=== PATIENT | male | born 1965 | race Caucasian/White ===

== ENCOUNTER 2019-05-21 14:18 | Emergency (ER) | payer MEDICARE ==
[~2019-05-21] VITALS: Ht 167.6 cm; Wt 91.1 kg
[2019-05-21 14:22] VITALS: BP 142/82
[2019-05-21] MEDS ORDERED: PROPARACAINE OPHTH 0.5%, 15ML ONE (14:31)
[2019-05-21] MEDS ORDERED: FLUORESCEIN OPHTHALMIC 1 MG STRIP ONE (14:31)
--- NOTE | 2019-05-21 14:31 | NUR ---
PT TO ROOM AT THIS TIME
--- NOTE | 2019-05-21 15:00 | NUR ---
PT WITH STY ON L EYE, ER PROVIDER IN TO EVAL. PT TO D/C WITH ABX
--- NOTE | 2019-05-21 15:13 | NUR ---
Patient/Caregiver given discharge instructions and they have confirmed that they understand the instructions. Patient ambulatory with steady gait.
== END 2019-05-21 15:14 | disposition home or self-care (01) ==
LOC: ED 14:50
DX: H00.011 Hordeolum externum right upper eyelid (principal)
CPT/HCPCS: 99283

== ENCOUNTER 2019-09-29 19:02 | Emergency (ER) | payer MEDICARE ==
[~2019-09-29] VITALS: Ht 170.2 cm; Wt 86.0 kg
[2019-09-29 19:04] VITALS: BP 144/86
[2019-09-29] MEDS ORDERED: DIPH,PERTUSS(ACELL),TET VAC/PF 0.5 ML IM-VACC ONE (20:00)
[2019-09-29] MEDS ORDERED: HYDROcodone/APAP 5/325 TABLET PO ONE (20:00)
[2019-09-29] MEDS ORDERED: HYDROcodone/APAP 5/325 TABLET ONE (20:02)
[2019-09-29 20:08] LABS: BASOPHILS # (AUTO) 0.02 x10^3/uL (0-0.1); BASOPHILS % (AUTO) 0 % (0-1); EOSINOPHILS # (AUTO) 0.04 x10^3/uL (0-0.4); EOSINOPHILS % (AUTO) 0 % (1-7); LYMPHOCYTES % (AUTO) 12 % (22-44); MD NO; MEAN CORPUSCULAR HEMOGLOBIN 31.2 pg (27.5-34.5); MEAN CORPUSCULAR HGB CONC 33.6 g/dL (33.2-36.2); MEAN CORPUSCULAR VOLUME 92.8 fL (81-97); MEAN PLATELET VOLUME 7.9 fL (7.4-10.4); MONOCYTES # (AUTO) 0.96 x10^3/uL (0.2-0.8); MONOCYTES % (AUTO) 7 % (2-9); NEUTROPHILS # (AUTO) 11.23 x10^3/uL (1.8-6.8); NEUTROPHILS % (AUTO) 81 % (42-75); PLATELET COUNT 249 x10^3/uL (130-400); RED BLOOD COUNT 4.55 x10^6/uL (4.38-5.82); RED CELL DISTRIBUTION WIDTH 13.4 % (9.4-14.8)
[2019-09-29] MEDS ORDERED: HYDROcodone/APAP 10/325 MG TABLET ONE (20:26)
[2019-09-29] MEDS ORDERED: HYDROcodone/APAP 10/325 MG TABLET PO ONE (20:30)
== END 2019-09-29 20:48 | disposition home or self-care (01) ==
LOC: ED 20:30
DX: S61.250A Open bite of right index finger without damage to nail, initial encounter (principal); W54.0XXA Bitten by dog, initial encounter; Y93.89 Activity, other specified; Y92.009 Unspecified place in unspecified non-institutional (private) residence as the place of occurrence of the external cause; Y99.8 Other external cause status
CPT/HCPCS: 36415; 85025; 90471; 90715; 99284

== ENCOUNTER 2019-09-30 20:20 | Inpatient (IN) | payer MEDICARE ==
[~2019-09-30] VITALS: Ht 170.2 cm; Wt 83.0 kg
[2019-09-30] MEDS ORDERED: ONDANSETRON 2MG/ML, 2ML ONE (21:43)
[2019-09-30] MEDS ORDERED: MORPHINE SULFATE 4 MG/ML, 1ML ONE ×2 (21:44→23:27)
[2019-10-01] MEDS ORDERED: ACETAMINOPHEN 325 MG TABLET PO PRN (01:00)
[2019-10-01] MEDS ORDERED: ONDANSETRON 2MG/ML, 2ML IV PRN ×2 (01:00→11:00)
[2019-10-01 02:30] VITALS: BP 107/69
[2019-10-01] MEDS: SODIUM CHLORIDE 0.9% 1,000 ML IV SCH ×2 (03:15→13:21)
[2019-10-01] MEDS: morphine SULFATE 10 MG/ML, 1ML IV PRN ×4 (03:17→22:19)
[2019-10-01] MEDS: HEPARIN 5,000 UNITS/ML, 1ML SQ SCH ×3 (03:25→20:00)
[2019-10-01] MEDS: AMPICILLIN/SULBACTAM 3 GM in SODIUM CHLORIDE 0.9% 100 ML IV SCH ×3 (04:15→18:27)
[2019-10-01] MEDS ORDERED: FLUO90CA5 PO (05:44)
[2019-10-01] MEDS ORDERED: HYDR-3245 PO (05:45)
[2019-10-01] MEDS ORDERED: GABA300C10 PO (05:49)
[2019-10-01] MEDS ORDERED: DULO30CA2 PO (05:50)
[2019-10-01] MEDS ORDERED: LORA-445 PO (05:53)
[2019-10-01 06:17] LABS: BASOPHILS # (AUTO) 0.02 x10^3/uL (0-0.1); BASOPHILS % (AUTO) 0 % (0-1); EOSINOPHILS % (AUTO) 1 % (1-7); LYMPHOCYTES % (AUTO) 12 % (22-44); MD NO; MEAN CORPUSCULAR HEMOGLOBIN 31.1 pg (27.5-34.5); MEAN CORPUSCULAR HGB CONC 33.1 g/dL (33.2-36.2); MEAN CORPUSCULAR VOLUME 93.9 fL (81-97); MEAN PLATELET VOLUME 8.3 fL (7.4-10.4); MONOCYTES # (AUTO) 0.76 x10^3/uL (0.2-0.8); MONOCYTES % (AUTO) 6 % (2-9); NEUTROPHILS # (AUTO) 9.69 x10^3/uL (1.8-6.8); NEUTROPHILS % (AUTO) 81 % (42-75); PLATELET COUNT 205 x10^3/uL (130-400); RED BLOOD COUNT 4.01 x10^6/uL (4.38-5.82)
[2019-10-01 06:29] LABS: ALANINE AMINOTRANSFERASE 31 U/L (12-78); ALBUMIN 3.1 g/dL (3.4-5.0); ANION GAP 6 mmol/L (5-15); CALCIUM 7.9 mg/dL (8.5-10.1); CHLORIDE 110 mmol/L (98-107); CREATININE 1.18 mg/dL (0.7-1.3)
[2019-10-01 06:31] LABS: ALKALINE PHOSPHATASE 83 U/L (45-117); BILIRUBIN,TOTAL 0.4 mg/dL (0.2-1.0); TOTAL PROTEIN 6.5 g/dL (6.4-8.2)
[2019-10-01] MEDS ORDERED: TAMS-11 PO (07:04)
[2019-10-01 07:50] LABS: INTERNATIONAL NORMALIZED RATIO 0.98 (0.93-1.1); PROTHROMBIN TIME 10.3 Seconds (9.6-11.5)
[2019-10-01 07:59] VITALS: BP 111/70
[2019-10-01] MEDS ORDERED: BACITRACIN 50,000 UNIT ONE (09:51)
[2019-10-01] MEDS ORDERED: FENTANYL PF 100 MCG/2ML ONE ×2 (10:31→11:43)
[2019-10-01] MEDS ORDERED: MIDAZOLAM 1 MG/ML, 2ML ONE (10:32)
[2019-10-01] MEDS ORDERED: LIDOCAINE-MPF 2% ,5ML ONE (10:32)
[2019-10-01] MEDS ORDERED: PROPOFOL 10 MG/ML, 20ML ONE ×2 (10:32→11:00)
[2019-10-01] MEDS ORDERED: HYDROmorphone 2 MG/ML, 1ML IVPush PRN (11:00)
[2019-10-01] MEDS ORDERED: LABETALOL 5MG/ML, 20ML IV PRN (11:00)
[2019-10-01] MEDS ORDERED: hydrALAzine 20 MG/ML, 1ML IV PRN (11:00)
[2019-10-01] MEDS ORDERED: PROMETHAZINE 25 MG/ML, 1ML IV PRN (11:00)
[2019-10-01] MEDS ORDERED: EPHEDRINE 50 MG/ML, 1ML IVPush PRN (11:00)
[2019-10-01] MEDS ORDERED: HYDROcodone/APAP 7.5-325MG/15ML UDC PO PRN (11:00)
[2019-10-01] MEDS ORDERED: FENTANYL PF 100 MCG/2ML IV PRN (11:00)
[2019-10-01] MEDS ORDERED: MEPERIDINE/PF 25MG/ML,1ML IVPush PRN (11:00)
[2019-10-01] MEDS ORDERED: HYDROcodone/APAP 7.5-325MG/15ML UDC ONE ×3 (11:43→11:46)
[2019-10-01] MEDS ORDERED: HYDROmorphone 1 MG/ML, 1ML VIAL ONE (11:44)
[2019-10-01 13:51] VITALS: BP 105/67
[2019-10-01] MEDS ORDERED: VANCOMYCIN PER PHARMACY MC PRN (14:30)
[2019-10-01 14:45] LABS: LYMPHOCYTES % (AUTO) 10 % (22-44); MEAN CORPUSCULAR HEMOGLOBIN 30.8 pg (27.5-34.5); MEAN CORPUSCULAR HGB CONC 33.1 g/dL (33.2-36.2); MEAN PLATELET VOLUME 8.4 fL (7.4-10.4); NEUTROPHILS % (AUTO) 82 % (42-75); PLATELET COUNT 232 x10^3/uL (130-400); RED BLOOD COUNT 4.53 x10^6/uL (4.38-5.82); RED CELL DISTRIBUTION WIDTH 13.6 % (9.4-14.8)
[2019-10-01 14:46] LABS: BASOPHILS # (AUTO) 0.01 x10^3/uL (0-0.1); BASOPHILS % (AUTO) 0 % (0-1); EOSINOPHILS # (AUTO) 0.14 x10^3/uL (0-0.4); EOSINOPHILS % (AUTO) 1 % (1-7); LYMPHOCYTES # (AUTO) 1.44 x10^3/uL (1-3.4); MD NO; MONOCYTES # (AUTO) 0.85 x10^3/uL (0.2-0.8); MONOCYTES % (AUTO) 6 % (2-9)
[2019-10-01 15:18] LABS: ALBUMIN 4.1 g/dL (3.4-5.0); ANION GAP 5 mmol/L (5-15); CALCIUM 8.4 mg/dL (8.5-10.1); CHLORIDE 105 mmol/L (98-107); CREATININE 1.71 mg/dL (0.7-1.3)
[2019-10-01] MEDS ORDERED: PHARMACOKINETIC MONITORING MC PRN (16:00)
[2019-10-01] MEDS: HYDROcodone/APAP 10/325 MG TABLET PO SCH ×2 (16:16→20:31)
[2019-10-01] MEDS: VANCOMYCIN 1,600 MG in SODIUM CHLORIDE 0.9% 250 ML IV SCH (16:17)
[2019-10-01 19:25] VITALS: BP 104/64
[2019-10-01] MEDS: GABAPENTIN 300 MG CAPSULE PO SCH (20:31)
[2019-10-01] MEDS: DULOXETINE 30 MG CAPSULE.DR PO SCH (20:31)
[2019-10-01] MEDS: LORazepam 0.5MG TABLET PO SCH (20:31)
[2019-10-02 00:03] VITALS: BP 103/65
[2019-10-02] MEDS: AMPICILLIN/SULBACTAM 3 GM in SODIUM CHLORIDE 0.9% 100 ML IV SCH ×3 (01:25→14:20)
[2019-10-02] MEDS: SODIUM CHLORIDE 0.9% 1,000 ML IV SCH ×3 (01:25→23:25)
[2019-10-02] MEDS: HEPARIN 5,000 UNITS/ML, 1ML SQ SCH ×3 (02:29→20:00)
[2019-10-02] MEDS: VANCOMYCIN 1,600 MG in SODIUM CHLORIDE 0.9% 250 ML IV SCH (04:14)
[2019-10-02] MEDS ORDERED: FLU VACC QS2019-20 36MOS UP/PF 0.5 ML IM-VACC ONE (05:00)
[2019-10-02 05:20] LABS: BASOPHILS # (AUTO) 0.01 x10^3/uL (0-0.1); BASOPHILS % (AUTO) 0 % (0-1); EOSINOPHILS % (AUTO) 1 % (1-7); LYMPHOCYTES # (AUTO) 1.47 x10^3/uL (1-3.4); LYMPHOCYTES % (AUTO) 11 % (22-44); MD NO; MEAN CORPUSCULAR HEMOGLOBIN 31.5 pg (27.5-34.5); MEAN CORPUSCULAR HGB CONC 33.2 g/dL (33.2-36.2); MEAN CORPUSCULAR VOLUME 94.7 fL (81-97); MEAN PLATELET VOLUME 8.8 fL (7.4-10.4); MONOCYTES # (AUTO) 0.82 x10^3/uL (0.2-0.8); MONOCYTES % (AUTO) 6 % (2-9); NEUTROPHILS # (AUTO) 11.07 x10^3/uL (1.8-6.8); NEUTROPHILS % (AUTO) 82 % (42-75); PLATELET COUNT 221 x10^3/uL (130-400); RED BLOOD COUNT 3.88 x10^6/uL (4.38-5.82); RED CELL DISTRIBUTION WIDTH 14.2 % (9.4-14.8)
[2019-10-02 05:24] LABS: ANION GAP 3 mmol/L (5-15); CALCIUM 7.8 mg/dL (8.5-10.1); CHLORIDE 110 mmol/L (98-107)
[2019-10-02 05:27] LABS: ALANINE AMINOTRANSFERASE 33 U/L (12-78); ALKALINE PHOSPHATASE 108 U/L (45-117); BILIRUBIN,TOTAL 0.3 mg/dL (0.2-1.0); TOTAL PROTEIN 6.6 g/dL (6.4-8.2)
[2019-10-02] MEDS: HYDROcodone/APAP 10/325 MG TABLET PO SCH ×4 (06:12→20:44)
[2019-10-02 07:35] VITALS: BP 114/67
[2019-10-02] MEDS: LORazepam 0.5MG TABLET PO SCH ×2 (08:37→20:44)
[2019-10-02] MEDS: GABAPENTIN 300 MG CAPSULE PO SCH ×2 (08:38→20:44)
[2019-10-02] MEDS: TAMSULOSIN 0.4 MG CAP.ER.24H PO SCH (08:38)
[2019-10-02] MEDS: DULOXETINE 30 MG CAPSULE.DR PO SCH ×2 (08:38→20:43)
[2019-10-02] MEDS ORDERED: HYDROcodone/APAP 5/325 TABLET ONE (11:28)
[2019-10-02 12:25] VITALS: BP 120/74
[2019-10-02] MEDS: morphine SULFATE 10 MG/ML, 1ML IV PRN ×2 (14:28→22:21)
[2019-10-02] MEDS ORDERED: CEFAZOLIN 2,000 MG in SODIUM CHLORIDE 0.9% 50 ML IV SCH (15:30)
[2019-10-02 16:07] LABS: HCT (SEDRATE) 32.7 % (39.2-51.8)
[2019-10-02] MEDS: CEFAZOLIN PMX 2GM/50ML 50 ML IVPB SCH ×2 (16:42→23:25)
[2019-10-02 19:31] VITALS: BP 118/70
[2019-10-03 01:25] VITALS: BP 130/72
[2019-10-03] MEDS: HEPARIN 5,000 UNITS/ML, 1ML SQ SCH ×3 (01:44→20:37)
[2019-10-03] MEDS: morphine SULFATE 10 MG/ML, 1ML IV PRN ×2 (02:09→07:49)
[2019-10-03] MEDS: DIPHENHYDRAMINE 25 MG CAPSULE PO PRN ×2 (02:09→20:36)
[2019-10-03] MEDS: HYDROcodone/APAP 10/325 MG TABLET PO SCH ×4 (06:33→20:36)
[2019-10-03 06:59] VITALS: BP 135/75
[2019-10-03] MEDS: GABAPENTIN 300 MG CAPSULE PO SCH ×2 (07:42→20:36)
[2019-10-03] MEDS: DULOXETINE 30 MG CAPSULE.DR PO SCH ×2 (07:42→20:35)
[2019-10-03] MEDS: LORazepam 0.5MG TABLET PO SCH ×2 (07:42→20:37)
[2019-10-03] MEDS: CEFAZOLIN PMX 2GM/50ML 50 ML IVPB SCH ×3 (07:42→23:38)
[2019-10-03] MEDS: TAMSULOSIN 0.4 MG CAP.ER.24H PO SCH (07:42)
[2019-10-03] MEDS: SODIUM CHLORIDE 0.9% 1,000 ML IV SCH ×2 (12:01→19:00)
[2019-10-03 12:50] VITALS: BP 146/78
[2019-10-03 19:24] VITALS: BP 165/82
[2019-10-04 02:02] VITALS: BP 149/80
[2019-10-04] MEDS: SODIUM CHLORIDE 0.9% 1,000 ML IV SCH (03:00)
[2019-10-04] MEDS: HEPARIN 5,000 UNITS/ML, 1ML SQ SCH ×3 (03:10→20:00)
[2019-10-04 05:21] LABS: HCT (SEDRATE) 34.5 % (39.2-51.8)
[2019-10-04 05:30] LABS: CHLORIDE 109 mmol/L (98-107)
[2019-10-04 05:34] LABS: BASOPHILS # (AUTO) 0.02 x10^3/uL (0-0.1); BASOPHILS % (AUTO) 0 % (0-1); EOSINOPHILS # (AUTO) 0.13 x10^3/uL (0-0.4); EOSINOPHILS % (AUTO) 2 % (1-7); LYMPHOCYTES # (AUTO) 1.35 x10^3/uL (1-3.4); LYMPHOCYTES % (AUTO) 17 % (22-44); MD NO; MEAN CORPUSCULAR HEMOGLOBIN 30.9 pg (27.5-34.5); MEAN CORPUSCULAR HGB CONC 32.8 g/dL (33.2-36.2); MEAN CORPUSCULAR VOLUME 94.1 fL (81-97); MEAN PLATELET VOLUME 8.2 fL (7.4-10.4); MONOCYTES % (AUTO) 7 % (2-9); NEUTROPHILS # (AUTO) 6.07 x10^3/uL (1.8-6.8); NEUTROPHILS % (AUTO) 74 % (42-75); PLATELET COUNT 266 x10^3/uL (130-400); RED BLOOD COUNT 3.71 x10^6/uL (4.38-5.82); RED CELL DISTRIBUTION WIDTH 13.5 % (9.4-14.8)
[2019-10-04] MEDS: HYDROcodone/APAP 10/325 MG TABLET PO SCH ×4 (05:41→20:34)
[2019-10-04 05:44] LABS: ALANINE AMINOTRANSFERASE 71 U/L (12-78); ALBUMIN 2.7 g/dL (3.4-5.0); ALKALINE PHOSPHATASE 200 U/L (45-117); ANION GAP 3 mmol/L (5-15); BILIRUBIN,TOTAL 0.3 mg/dL (0.2-1.0); CALCIUM 8.4 mg/dL (8.5-10.1); CREATININE 0.93 mg/dL (0.7-1.3); TOTAL PROTEIN 6.6 g/dL (6.4-8.2)
[2019-10-04 08:07] VITALS: BP 145/82
[2019-10-04] MEDS: GABAPENTIN 300 MG CAPSULE PO SCH ×2 (08:17→20:34)
[2019-10-04] MEDS: CEFAZOLIN PMX 2GM/50ML 50 ML IVPB SCH ×2 (08:17→16:15)
[2019-10-04] MEDS: DULOXETINE 30 MG CAPSULE.DR PO SCH ×2 (08:17→20:34)
[2019-10-04] MEDS: TAMSULOSIN 0.4 MG CAP.ER.24H PO SCH (08:18)
[2019-10-04] MEDS: LORazepam 0.5MG TABLET PO SCH ×2 (08:18→20:34)
[2019-10-04 13:30] VITALS: BP 128/77
[2019-10-04 19:16] VITALS: BP 160/84
[2019-10-05] MEDS: CEFAZOLIN PMX 2GM/50ML 50 ML IVPB SCH ×2 (00:06→09:12)
[2019-10-05 01:39] VITALS: BP 134/70
[2019-10-05] MEDS: DIPHENHYDRAMINE 25 MG CAPSULE PO PRN (03:35)
[2019-10-05] MEDS: HEPARIN 5,000 UNITS/ML, 1ML SQ SCH ×2 (03:42→11:19)
[2019-10-05] MEDS: HYDROcodone/APAP 10/325 MG TABLET PO SCH ×2 (06:13→11:19)
[2019-10-05 07:58] VITALS: BP 155/81
[2019-10-05] MEDS: GABAPENTIN 300 MG CAPSULE PO SCH (09:12)
[2019-10-05] MEDS: LORazepam 0.5MG TABLET PO SCH (09:12)
[2019-10-05] MEDS: DULOXETINE 30 MG CAPSULE.DR PO SCH (09:12)
[2019-10-05] MEDS: TAMSULOSIN 0.4 MG CAP.ER.24H PO SCH (09:12)
[2019-10-06] MEDS ORDERED: TADA5TAB2 PO (16:59)
== END 2019-10-05 13:05 | disposition home or self-care (01) | DRG 853 ==
LOC: ED 23:08 → EDIP 10-01 02:24 → 3N 10-01 03:53 → DCLOUNGE 10-05 12:58
PROVIDERS: ADMIT Internal Medicine; ATTEND Hospitalist
PROC: 0JBJ0ZZ Excision of Right Hand Subcutaneous Tissue and Fascia, Open Approach (ICD-10-PCS; principal; 2019-10-01 10:00)
PROC: 02HV33Z Insertion of Infusion Device into Superior Vena Cava, Percutaneous Approach (ICD-10-PCS; 2019-10-04)
PROC: B548ZZA Ultrasonography of Superior Vena Cava, Guidance (ICD-10-PCS; 2019-10-04)
PROC: B5181ZA Fluoroscopy of Superior Vena Cava using Low Osmolar Contrast, Guidance (ICD-10-PCS; 2019-10-04)
DX: A40.9 Streptococcal sepsis, unspecified (principal); N17.0 Acute kidney failure with tubular necrosis; L02.511 Cutaneous abscess of right hand; L03.011 Cellulitis of right finger; D64.9 Anemia, unspecified; F32.9 Major depressive disorder, single episode, unspecified; G62.9 Polyneuropathy, unspecified; G89.29 Other chronic pain; M65.841 Other synovitis and tenosynovitis, right hand; S61.250A Open bite of right index finger without damage to nail, initial encounter; W54.0XXA Bitten by dog, initial encounter; Y93.89 Activity, other specified; Y92.89 Other specified places as the place of occurrence of the external cause; Y99.8 Other external cause status
CPT/HCPCS: 36415; 36573; 80048; 80053; 82040; 83605; 83735; 84100; 84145; 85025; 85610; 85651; 86140; 87015; 87040; 87070; 87075; 87102; 87116; 87147; 87205; 87206; 90471; 90686; 90715; 93005; 99284; 99285; G0378; J0295; J0690; J1644; J2250; J2704; J3010; J3370; C1751; J2270; J7030; J7050; Q0163

== ENCOUNTER → 2019-10-15 | Outpatient (CLI) | payer MEDICARE ==
[~2019-10-15] MED LIST: DULO30CA2 PO; FLUO90CA5 PO; GABA300C10 PO; HYDR-3245 PO; LORA-445 PO; TADA5TAB2 PO; TAMS-11 PO
== END | disposition home or self-care (01) ==
LOC: WOUND 09:00
PROVIDERS: ATTEND Family Medicine
DX: T81.31XA Disruption of external operation (surgical) wound, not elsewhere classified, initial encounter (principal); L03.011 Cellulitis of right finger; G13.0 Paraneoplastic neuromyopathy and neuropathy; M65.841 Other synovitis and tenosynovitis, right hand; K21.9 Gastro-esophageal reflux disease without esophagitis; G62.9 Polyneuropathy, unspecified; F41.9 Anxiety disorder, unspecified; F32.9 Major depressive disorder, single episode, unspecified; G89.29 Other chronic pain; Y83.8 Other surgical procedures as the cause of abnormal reaction of the patient, or of later complication, without mention of misadventure at the time of the procedure; Y92.89 Other specified places as the place of occurrence of the external cause
CPT/HCPCS: G0463